=== PATIENT | male | born 1960 | race Two or more races ===

== ENCOUNTER 2019-06-30 07:34 | Day surgery (SDC) | payer OTHER ==
[2019-06-27 10:53] VITALS: BMI 32.1
[2019-06-30] MEDS ORDERED: PROPOFOL 20 ML ONE ×2 (08:03)
[2019-06-30 12:55] VITALS: BP 120/74; PULSE 72; TEMP 98.1
--- NOTE | 2019-07-03 16:26 | PATH ---
Surgical Pathology Report Patient Name: ENDER ZIMMERMAN [facility]. Rec. #: [id number] /Age/Gender: 1960 (Age: 58) / M Account: [id number] Location: [facility] Taken: 06/30/2019 Received: 06/30/2019 Reported: 07/03/2019 Physicians: oJel Valentine M.D. Specimen(s) Received A: POLYP RIGHT COLON B: POLYP LEFT COLON Clinical History Colon, polyps Final Diagnosis A. RIGHT COLON, POLYP, BIOPSY: TUBULAR ADENOMA. B. LEFT COLON, POLYP, BIOPSY: TUBULAR ADENOMA. Electronically Signed Marya Doran M.D. Gross Description A. Received in formalin, labeled "polyp, right colon" are 2 ramos, irregular portions of soft tissue each measuring 0.2 cm. in greatest dimension. The specimens are submitted in toto in one cassette. B. Received in formalin, labeled "polyp, left colon" is a ramos, irregular portion of soft tissue measuring 0.2 cm. in greatest dimension. The specimen is submitted in toto in one cassette. AE/07/01/2019 ebram/07/01/2019
== END 2019-06-30 12:55 | disposition home or self-care (01) ==
LOC: FASU-ENDO 07:34
PROVIDERS: ATTEND Internal Medicine Gastroenterology
PROC: 0DBM8ZX Excision of Descending Colon, Via Natural or Artificial Opening Endoscopic, Diagnostic (ICD-10-PCS; 2019-06-30)
PROC: 0DBK8ZX Excision of Ascending Colon, Via Natural or Artificial Opening Endoscopic, Diagnostic (ICD-10-PCS; principal; 2019-06-30 11:46)
DX: Z86.010 Personal history of colon polyps (principal); D12.2 Benign neoplasm of ascending colon; D12.4 Benign neoplasm of descending colon